=== PATIENT | female | born 1970 | race Caucasian/White ===

== ENCOUNTER 2017-02-17 23:33 | Emergency (ER) | payer MEDICAID ==
[~2017-02-17] VITALS: Ht 162.6 cm; Wt 73.0 kg
[2017-02-18] MEDS ORDERED: FENTANYL CITRATE/PF 50MCG/ML 2ML VIAL IV ONE (00:45)
[2017-02-18] MEDS ORDERED: KETOROLAC 15MG/ML VIAL IV ONE (03:30)
[2017-02-18 03:35] VITALS: BP 164/95
== END 2017-02-18 03:50 | disposition home or self-care (01) ==
LOC: ER 23:34
DX: S43.004A Unspecified dislocation of right shoulder joint, initial encounter (principal); I10 Essential (primary) hypertension; X58.XXXA Exposure to other specified factors, initial encounter; Y93.89 Activity, other specified; Y92.89 Other specified places as the place of occurrence of the external cause; Y99.8 Other external cause status
CPT/HCPCS: 23650; 73030; 93005; 96374; 96375; 99284; J1885; J3010; Z7610; L3670

== ENCOUNTER 2020-01-11 09:10 | Emergency (ER) | payer OTHER ==
[~2020-01-11] VITALS: Ht 157.5 cm; Wt 77.0 kg
[2020-01-11] MEDS ORDERED: KETOROLAC 60MG/2ML VIAL IM ONE (10:45)
[2020-01-11 11:18] VITALS: BP 148/88
== END 2020-01-11 11:21 | disposition home or self-care (01) ==
LOC: ER 09:37
DX: M25.511 Pain in right shoulder (principal); I10 Essential (primary) hypertension
CPT/HCPCS: 73030; 96372; 99283; J1885

== ENCOUNTER 2020-08-08 10:33 | Emergency (ER) | payer OTHER ==
[~2020-08-08] VITALS: Ht 160 cm; Wt 75.0 kg
[2020-08-08 10:50] VITALS: BP 152/103
[2020-08-08] MEDS ORDERED: NAPR-681 MT (11:28)
[2020-08-08] MEDS ORDERED: CYCL5TAB MT (11:28)
== END 2020-08-08 11:36 | disposition home or self-care (01) ==
LOC: ER 10:33
DX: M79.671 Pain in right foot (principal); M25.521 Pain in right elbow
CPT/HCPCS: 99282

== ENCOUNTER 2021-03-11 14:02 | Emergency (ER) | payer OTHER ==
[~2021-03-11] VITALS: Ht 157.5 cm; Wt 79.0 kg
[~2021-03-11 14:02] MED LIST: CYCL5TAB MT; NAPR-681 MT
[2021-03-11] MEDS ORDERED: KETOROLAC 30MG/ML VIAL IM ONE (14:45)
[2021-03-11] MEDS ORDERED: CYCLOBENZAPRINE 10MG TABLET PO SCH (14:45)
[2021-03-11] MEDS ORDERED: NAPR-1176 MT (14:59)
[2021-03-11] MEDS ORDERED: CYCL5TAB MT (14:59)
[2021-03-11 15:49] VITALS: BP 130/83
== END 2021-03-11 15:51 | disposition home or self-care (01) ==
LOC: ER 14:02
DX: M25.511 Pain in right shoulder (principal); I10 Essential (primary) hypertension
CPT/HCPCS: 96372; 99283; J1885

== ENCOUNTER 2024-09-19 22:37 | Emergency (ER) | payer MEDICAID, OTHER ==
[~2024-09-19] VITALS: Ht 162.6 cm; Wt 86.0 kg
[~2024-09-19 22:37] MED LIST changes: -CYCL5TAB MT; +CYCL5TAB3 MT; +NAPR-1176 MT
[2024-09-19 22:49] VITALS: O2SAT 96
[2024-09-20] MEDS: HYDROCODONE/ACETAMINOPHEN 5/325MG TABLET PO ONE (01:00)
[2024-09-20] MEDS ORDERED: KETO10TA2 MT (02:36)
[2024-09-20 02:55] VITALS: BP 133/82; PULSE 79; RESP 18; TEMP 37.1; O2SAT 98
== END 2024-09-20 03:02 | disposition home or self-care (01) ==
LOC: ER 22:37
DX: S52.121A Displaced fracture of head of right radius, initial encounter for closed fracture (principal); I10 Essential (primary) hypertension; Z90.710 Acquired absence of both cervix and uterus; X58.XXXA Exposure to other specified factors, initial encounter; Y93.89 Activity, other specified; Y92.89 Other specified places as the place of occurrence of the external cause; Y99.8 Other external cause status
CPT/HCPCS: 73080; 99283

== ENCOUNTER 2024-09-22 14:27 | Emergency (ER) | payer BC, MEDICAID ==
[~2024-09-22] VITALS: Ht 162.6 cm; Wt 86.0 kg
[~2024-09-22 14:27] MED LIST changes: +KETO10TA2 MT
[2024-09-22 14:46] VITALS: TEMP 37; O2SAT 98
[2024-09-22] MEDS ORDERED: HYDR-4001 MT (15:30)
[2024-09-22 16:53] VITALS: BP 151/77; PULSE 72; RESP 13; O2SAT 97
== END 2024-09-22 16:54 | disposition home or self-care (01) ==
LOC: ER 14:27
DX: S52.101A Unspecified fracture of upper end of right radius, initial encounter for closed fracture (principal); I10 Essential (primary) hypertension; Z79.899 Other long term (current) drug therapy; X58.XXXA Exposure to other specified factors, initial encounter; Y93.89 Activity, other specified; Y92.89 Other specified places as the place of occurrence of the external cause; Y99.8 Other external cause status
CPT/HCPCS: 99283; 29105; A6449